=== PATIENT | female | born 1970 ===

== ENCOUNTER 2020-04-03 12:29 | Observation (INO) ==
[2020-04-03 13:21] LABS: ABS Lymphocytes 0.9 10^3/ul (1.0-4.8); ABS Monocytes 0.4 10^3/ul (0-0.8); ABS Neutrophils 6.1 10^3/ul (1.5-7.7); Eosinophil % 0.6 %; Hematocrit 32 % (35-47); Hemoglobin 10.3 g/dL (12.0-16.0); Lymphocyte % 11.9 %; Mean Corpuscular HGB Conc 33 g/dL (31-36); Mean Corpuscular Hemoglobin 26 pg (27-31); Mean Corpuscular Volume 79 fL (80-97); Mean Platelet Volume 8.3 fL (7.4-10.4); Platelet Count 245 10^3/uL (150-450); Red Cell Distribution Width 17 % (10-15); White Blood Count 7.5 10^3/uL (3.5-10.8)
[2020-04-03 13:44] LABS: INR 1.09 (0.82-1.09); Troponin I 0.07 ng/mL (<0.03)
[2020-04-03 13:45] LABS: HCG Pregnancy 2.29 mIU/mL
[2020-04-03 14:01] LABS: ALT 23 U/L (7-52); AST 18 U/L (13-39); Albumin 3.8 g/dL (3.2-5.2); Albumin/Globulin Ratio 1.3 (1-3); Alkaline Phosphatase 67 U/L (34-104); Anion Gap 7 mmol/L (2-11); BUN/Creatinine Ratio 11.8 (8-20); Blood Urea Nitrogen 8 mg/dL (6-24); CO2 Carbon Dioxide 27 mmol/L (22-32); Calcium 9.2 mg/dL (8.6-10.3); Chloride 106 mmol/L (101-111); Creatine Kinase 106 U/L (10-223); EGFR African American 112.2 (>60); EGFR Non-African American 92.7 (>60); Glucose 95 mg/dL (70-100); Potassium 3.9 mmol/L (3.5-5.0); Sodium 140 mmol/L (135-145); Total Protein 6.8 g/dL (6.4-8.9)
[2020-04-03] MEDS ORDERED: Tetan/Diph/Pertus SYR(Tdap) 0.5 ML SYR(BOOSTRIX) use SYR contains LATEX IM ONE (14:25)
[2020-04-03 15:45] LABS: C Reactive Protein 2.51 mg/L (<8.01)
[2020-04-03] MEDS ORDERED: NS 0.9% 1000 ml BAG 1,000 ML IV SCH (15:45)
[2020-04-03] MEDS ORDERED: Iohexol 350 (CONTRAST) 500 ML MDV IV ONE (19:28)
[2020-04-03 19:52] LABS: Creatine Kinase 124 U/L (10-223)
[2020-04-03 19:57] LABS: CKMB ng/mL 3.7 ng/mL (0.6-6.3)
[2020-04-03 19:58] LABS: Troponin I 0.27 ng/mL (<0.03)
[2020-04-03 22:04] LABS: ABS Monocytes 0.5 10^3/ul (0-0.8); ABS Neutrophils 5.2 10^3/ul (1.5-7.7); Eosinophil % 0.5 %; Hematocrit 30 % (35-47); Lymphocyte % 14.5 %; Mean Corpuscular HGB Conc 33 g/dL (31-36); Mean Corpuscular Hemoglobin 26 pg (27-31); Mean Corpuscular Volume 79 fL (80-97); Mean Platelet Volume 8.4 fL (7.4-10.4); Platelet Count 213 10^3/uL (150-450); Red Blood Count 3.79 10^6 /uL (3.70-4.87); Red Cell Distribution Width 17 % (10-15); White Blood Count 6.8 10^3/uL (3.5-10.8)
[2020-04-03] MEDS: buPROPion SR 200 mg TAB.SR PO SCH (22:08)
[2020-04-03 22:12] LABS: INR 1.1 (0.82-1.09)
[2020-04-03 22:19] LABS: EGFR African American 108.5 (>60); EGFR Non-African American 89.7 (>60); Potassium 3.6 mmol/L (3.5-5.0)
[2020-04-04 01:52] LABS: Troponin I 0.13 ng/mL (<0.03)
[2020-04-04 04:28] LABS: Anion Gap 6 mmol/L (2-11); BUN/Creatinine Ratio 9.8 (8-20); Blood Urea Nitrogen 6 mg/dL (6-24); CO2 Carbon Dioxide 23 mmol/L (22-32); Calcium 8.8 mg/dL (8.6-10.3); Chloride 109 mmol/L (101-111); Cholesterol 147 mg/dL; EGFR African American 127.2 (>60); EGFR Non-African American 105.1 (>60); Glucose 91 mg/dL (70-100); HDL Cholesterol 37.1 mg/dL; LDL Cholesterol 95 mg/dL; Potassium 3.9 mmol/L (3.5-5.0); Sodium 138 mmol/L (135-145); Triglycerides 77 mg/dL
[2020-04-04 05:10] LABS: ABS Eosinophils 0.1 10^3/ul (0-0.6); ABS Lymphocytes 2.3 10^3/ul (1.0-4.8); ABS Monocytes 0.6 10^3/ul (0-0.8); ABS Neutrophils 4.5 10^3/ul (1.5-7.7); Eosinophil % 1.1 %; Hematocrit 31 % (35-47); Large Platelets Present; Lymphocyte % 30.3 %; Mean Corpuscular HGB Conc 32 g/dL (31-36); Mean Corpuscular Hemoglobin 26 pg (27-31); Mean Corpuscular Volume 80 fL (80-97); Mean Platelet Volume 8.9 fL (7.4-10.4); Nucleated Red Blood Cells % 0.1; Platelet Count 191 10^3/uL (150-450); Polychromasia 1+; Red Blood Count 3.87 10^6 /uL (3.70-4.87); Red Cell Distribution Width 17 % (10-15); White Blood Count 7.5 10^3/uL (3.5-10.8)
[2020-04-04 05:13] LABS: % Iron Saturation 7 % (15-55); Iron 25 ug/dL (50-212); Total Iron Binding Capacity 368 mcg/dL (250-450); Transferrin 263 mg/dL (203-362); Unsaturated Iron Binding < 353 ug/dL
[2020-04-04 05:14] LABS: Free T4 1.19 ng/dL (0.61-1.12)
[2020-04-04 05:17] LABS: Ferritin 5.1 ng/mL (11-307)
[2020-04-04 05:31] LABS: Troponin I 0.16 ng/mL (<0.03)
[2020-04-04] MEDS: buPROPion SR 200 mg TAB.SR PO SCH (09:35)
[2020-04-04 09:38] LABS: Troponin I 0.52 ng/mL (<0.03)
[2020-04-04] MEDS ORDERED: Heparin 1,000 UNIT/ML 10 ml (10,000 UNITS) CATHLAB/DIALYSIS IV ONE (10:00)
[2020-04-04] MEDS ORDERED: VERAPAMIL 2.5 MG/ML 2 ML VIAL ** 5 mg/2 ml ONE (10:01)
[2020-04-04] MEDS ORDERED: Lidocaine 1% VIAL 10 MG/ML VIAL ONE (10:02)
[2020-04-04] MEDS ORDERED: Iohexol 350 (CONTRAST) 200 ML MDV IV ONE (10:02)
[2020-04-04] MEDS ORDERED: nitroGLYCERIN DRIP 25,000 MCG/250 ML BTL ONE (10:02)
[2020-04-04] MEDS ORDERED: Heparin 2 UNITS/ML 1000 mls 2,000 ML IV ONE (10:02)
[2020-04-04] MEDS ORDERED: fentaNYL 100 mcg/2 ml 50 MCG/ML VIAL ONE (10:15)
[2020-04-04] MEDS ORDERED: Midazolam 5 mg/5 ml VIAL 1 mg/ml 5 ml VIAL (5 mg) ONE (10:15)
[2020-04-04] MEDS ORDERED: NS 0.9% 1000 ml BAG 1,000 ML IV SCH (11:30)
[2020-04-04 15:55] LABS: Magnesium 1.9 mg/dL (1.9-2.7); Phosphorus 2.9 mg/dL (2.5-5.0)
[2020-04-04 16:23] VITALS: BP 124/63
[2020-04-04 16:29] LABS: Vitamin B12 623 pg/mL (180-914)
== END 2020-04-04 17:45 | disposition home or self-care (01) ==
LOC: ED 12:29 → MEDTELE 12:29
PROVIDERS: ADMIT Internal Medicine; ATTEND Internal Medicine